=== PATIENT | female | born 1980 | race Caucasian/White ===

== ENCOUNTER 2016-06-22 09:43 | Emergency (ER) | payer BC ==
[2016-06-22 09:52] VITALS: RESP 20
[2016-06-22] MEDS ORDERED: ONDANSETRON 4 MG/2 ML VIAL IVP STA (10:27)
[2016-06-22] MEDS ORDERED: HYDROmorphone 1 MG/ML 1 ML SYRINGE IVP STA (10:27)
[2016-06-22] MEDS ORDERED: SODIUM CHLORIDE 0.9% 1,000 ML IV STA ×2 (10:27)
--- NOTE | 2016-06-22 10:30 | ED ---
General Adult HPI - General Chief complaint: Back Pain/Injury Stated complaint: kidney pain/abdominal pain Time Seen by Provider: 06/22/16 10:20 Source: patient, RN notes reviewed, old records reviewed Mode of arrival: ambulatory Limitations: no limitations - History of Present Illness Initial comments: Patient 36-year-old female who presents emergency room today with a chief complaint of right-sided flank pain over the last 2 weeks. Patient does admit that she went to urgent care and also is follow-up the family doctor. She states she was diagnosed with a kidney stone. She states that she was advised by her family doctor to have a CT. States been having increased pain left flank area. States it is constant. Describes it as sharp. States is been no signs of hematuria. States she was told it was somewhat. Her blood in her urine analysis. Patient states she was initially diagnosed with a UTI and then started on antibiotics which she has not currently at this time. Admits to nausea at times. Patient denies any other complaints or symptoms currently. Patient denies any recent fever, chills, shortness of breath, chest pain, vomiting, numbness or tingling, dysuria or hematuria, constipation or diarrhea, headaches or visual changes, or any other complaints. - Related Data Home Medications Medication Instructions Recorded Confirmed Acetaminophen-Codeine 300-30mg 1 tab PO Q8H PRN 03/16/14 06/22/16 [Tylenol w/codeine #3] Ibuprofen [Motrin] 800 mg PO Q8H PRN 06/22/16 06/22/16 Previous Rx's Medication Instructions Recorded Cyclobenzaprine [Flexeril] 10 mg PO TID #20 tab 06/22/16 Allergies Allergy/AdvReac Type Severity Reaction Status Date / Time Sulfa (Sulfonamide Allergy DROP IN Verified 06/22/16 10:11 Antibiotics) BP/RASH/ITCH/N&V Review of Systems ROS Statement: Those systems with pertinent positive or pertinent negative responses have been documented in the HPI. ROS Other: All systems not noted in ROS Statement are negative. Past Medical History Past Medical History: No Reported History History of Any Multi-Drug Resistant Organisms: None Reported Past Surgical History: Section Additional Past Surgical History / Comment(s): LEAP procedure Past Psychological History: No Psychological Hx Reported Smoking Status: Former smoker Past Alcohol Use History: None Reported Past Drug Use History: None Reported General Exam - General Exam Comments Initial Comments: General: The patient is awake and alert, in no distress, and does not appear acutely ill. Eye: Pupils are equal, round and reactive to light, extra-ocular movements are intact. No nystagmus. There is normal conjunctiva bilaterally. No signs of icterus. Ears, nose, mouth and throat: There are moist mucous membranes and no oral lesions. Neck: The neck is supple, there is no tenderness or JVD. Cardiovascular: There is a regular rate and rhythm. No murmur, rub or gallop is appreciated. Respiratory: Lungs are clear to auscultation, respirations are non-labored, breath sounds are equal. No wheezes, stridor, rales, or rhonchi. Gastrointestinal: Normal. 7. Normal bowel sounds. Abdomen soft on palpation. Patient does have mild tenderness suprapubic over the bladder. No rebound tenderness. No guarding. Mild left-sided CVA tenderness. Musculoskeletal: Normal ROM, no tenderness. Strength 5/5. Sensation intact. Pulses equal bilaterally 2+. Neurological: A&O x 3. CN II-XII intact, There are no obvious motor or sensory deficits. Coordination appears grossly intact. Speech is normal. Skin: Skin is warm and dry and no rashes or lesions are noted. Psychiatric: Cooperative, appropriate mood & affect, normal judgment. Limitations: no limitations Course Vital Signs 06/22/16 09:49 Temperature 97.6 F Pulse Rate 73 Respiratory 20 Rate Blood Pressure 140/73 O2 Sat by Pulse 97 Oximetry Medical Decision Making - Medical Decision Making Patient reexamined at this time shows no signs of distress. States still expresses some discomfort and left flank. Patient labs been reviewed are unremarkable. Urinalysis is negative for any sign of infection. No hematuria. Patient's CT results that show a 7.5 mm stone in the mid pole of the left kidney. No evidence of hydronephrosis. Results were discussed with attending physician Dr. Anderson. Results discussed with the patient. Was discussed the possibility of muscle or skeletal pain causing symptoms as she does admit that it's worse when she lifts things or certain movements. Patient does have L3 and ibuprofen at home that she is using for pain. Options of a muscle laxer were discussed with the patient. She was advised it may make her drowsy. Advised to try this this evening for the symptoms. Advised follow back up to her family doctor. Also given information for urology. Advised return if any symptoms increase or worsen or for any other concerns. - Lab Data Result diagrams: 06/22/16 10:05 06/22/16 10:05 Lab Results 06/22/16 06/22/16 06/22/16 Range/Units 10:05 10:05 10:05 WBC 4.4 (3.8-10.6) k/uL RBC 3.96 (3.80-5.40) m/uL Hgb 11.8 (11.4-16.0) gm/dL Hct 35.9 (34.0-46.0) % MCV 90.8 (80.0-100.0) fL MCH 29.7 (25.0-35.0) pg MCHC 32.8 (31.0-37.0) g/dL RDW 13.4 (11.5-15.5) % Plt Count 206 (150-450) k/uL Neutrophils % 79 % Lymphocytes % 10 % Monocytes % 7 % Eosinophils % 1 % Basophils % 1 % Neutrophils # 3.5 (1.3-7.7) k/uL Lymphocytes # 0.5 L (1.0-4.8) k/uL Monocytes # 0.3 (0-1.0) k/uL Eosinophils # 0.1 (0-0.7) k/uL Basophils # 0.0 (0-0.2) k/uL Sodium 140 (137-145) mmol/L Potassium 4.5 (3.5-5.1) mmol/L Chloride 102 (98-107) mmol/L Carbon Dioxide 26 (22-30) mmol/L Anion Gap 12 mmol/L BUN 15 (7-17) mg/dL Creatinine 0.76 (0.52-1.04) mg/dL Est GFR (MDRD) Af Amer >60 (>60 ml/min/1.73 sqM) Est GFR (MDRD) Non-Af >60 (>60 ml/min/1.73 sqM) Glucose 78 (74-99) mg/dL Calcium 9.2 (8.4-10.2) mg/dL Total Bilirubin 0.5 (0.2-1.3) mg/dL AST 16 (14-36) U/L ALT 36 (9-52) U/L Alkaline Phosphatase 61 (38-126) U/L Total Protein 7.6 (6.3-8.2) g/dL Albumin 4.1 (3.5-5.0) g/dL Lipase 106 (23-300) U/L Urine Color Colorless Urine Appearance Clear (Clear) Urine pH 6.5 (5.0-8.0) Urine Protein Negative (Negative) Urine Glucose (UA) Negative (Negative) Urine Ketones Negative (Negative) Urine Blood Negative (Negative) Urine Nitrate Negative (Negative) Urine Bilirubin Negative (Negative) Urine Urobilinogen <2.0 (<2.0) mg/dL Ur Leukocyte Esterase Negative (Negative) Urine HCG, Qual (Not Detectd) 06/22/16 Range/Units 10:05 WBC (3.8-10.6) k/uL RBC (3.80-5.40) m/uL Hgb (11.4-16.0) gm/dL Hct (34.0-46.0) % MCV (80.0-100.0) fL MCH (25.0-35.0) pg MCHC (31.0-37.0) g/dL RDW (11.5-15.5) % Plt Count (150-450) k/uL Neutrophils % % Lymphocytes % % Monocytes % % Eosinophils % % Basophils % % Neutrophils # (1.3-7.7) k/uL Lymphocytes # (1.0-4.8) k/uL Monocytes # (0-1.0) k/uL Eosinophils # (0-0.7) k/uL Basophils # (0-0.2) k/uL Sodium (137-145) mmol/L Potassium (3.5-5.1) mmol/L Chloride (98-107) mmol/L Carbon Dioxide (22-30) mmol/L Anion Gap mmol/L BUN (7-17) mg/dL Creatinine (0.52-1.04) mg/dL Est GFR (MDRD) Af Amer (>60 ml/min/1.73 sqM) Est GFR (MDRD) Non-Af (>60 ml/min/1.73 sqM) Glucose (74-99) mg/dL Calcium (8.4-10.2) mg/dL Total Bilirubin (0.2-1.3) mg/dL AST (14-36) U/L ALT (9-52) U/L Alkaline Phosphatase (38-126) U/L Total Protein (6.3-8.2) g/dL Albumin (3.5-5.0) g/dL Lipase (23-300) U/L Urine Color Urine Appearance (Clear) Urine pH (5.0-8.0) Urine Protein (Negative) Urine Glucose (UA) (Negative) Urine Ketones (Negative) Urine Blood (Negative) Urine Nitrate (Negative) Urine Bilirubin (Negative) Urine Urobilinogen (<2.0) mg/dL Ur Leukocyte Esterase (Negative) Urine HCG, Qual Not Detected (Not Detectd) Disposition Clinical Impression: Renal colic on left side Disposition: HOME SELF-CARE Condition: Good Instructions: Renal Colic (ED) Additional Instructions: Please use medication as discussed. Please follow-up with family doctor in the next 2 days of symptoms have not improved. Please return to emergency room if the symptoms increase or worsen or for any other concerns. Prescriptions: Cyclobenzaprine [Flexeril] 10 mg PO TID #20 tab Referrals: None,Stated [Primary Care Provider] - 1-2 days Wade Jarrett MD [STAFF PHYSICIAN] - 1-2 days Time of Disposition: 11:59
[2016-06-22 10:42] LABS: Basophils % (A) 1 %; CH 29.8; Eosinophils # (A) 0.1 k/uL (0-0.7); Eosinophils % (A) 1 %; HCT 35.9 % (34.0-46.0); HDW 2.24; HGB 11.8 gm/dL (11.4-16.0); Luc # (Auto) 0.04; Luc % (Auto) 1; Lymphocytes # (A) 0.5 k/uL (1.0-4.8); Lymphocytes % (A) 10 %; MCH 29.7 pg (25.0-35.0); MCHC 32.8 g/dL (31.0-37.0); MCV 90.8 fL (80.0-100.0); Mean Platelet Volume 8.1; Monocytes # (A) 0.3 k/uL (0-1.0); Monocytes % (A) 7 %; Neutrophils # (A) 3.5 k/uL (1.3-7.7); Neutrophils % (A) 79 %; RBC 3.96 m/uL (3.80-5.40); RDW 13.4 % (11.5-15.5); WBC 4.4 k/uL (3.8-10.6); WBC (Perox) 4.81
[2016-06-22 10:47] LABS: Appearance,Urine Clear (Clear); Bilirubin,Urine Negative (Negative); Glucose,Urine (UA) Negative (Negative); Ketones,Urine Negative (Negative); Leukocyte Esterase,Urine Negative (Negative); Nitrite,Urine Negative (Negative); PH, Urine 6.5 (5.0-8.0); Protein,Urine Negative (Negative); UA Billing (MACRO vs. MICRO) CHEM; Urobilinogen,Urine <2.0 mg/dL (<2.0)
[2016-06-22 10:57] LABS: ALT 36 U/L (9-52); AST 16 U/L (14-36); Alkaline Phosphatase 61 U/L (38-126); Anion Gap 12 mmol/L; Blood Urea Nitrogen 15 mg/dL (7-17); Calcium 9.2 mg/dL (8.4-10.2); Carbon Dioxide 26 mmol/L (22-30); Chloride 102 mmol/L (98-107); Glucose 78 mg/dL (74-99); Non-African American GFR(MDRD) >60 (>60 ml/min/1.73 sqM); Potassium 4.5 mmol/L (3.5-5.1); Sodium 140 mmol/L (137-145); Total Bilirubin 0.5 mg/dL (0.2-1.3); Total Protein 7.6 g/dL (6.3-8.2)
--- NOTE | 2016-06-22 11:30 | CT ---
EXAMINATION TYPE: CT abdomen pelvis wo con DATE OF EXAM: 06/22/2016 11:15 AM COMPARISON: NONE HISTORY: Lt flank pain CT DLP: 720 mGycm FINDINGS: LUNG BASES: No evidence for nodule. No evidence for infiltrate. LIVER/GB: The gallbladder is unremarkable. No space-occupying hepatic lesion. PANCREAS: No pancreatic mass identified. No inflammatory process seen. SPLEEN: No evidence for splenomegaly. No intrasplenic lesions seen. ADRENALS: No adrenal nodules identified. No evidence for thickening. KIDNEYS: No evidence for renal mass. 7.5 mm calculus overlies the left kidney midpole region. No evid ence for hydronephrosis. 1 mm calculus upper pole left kidney no definite right-sided renal calculi s een. Urinary bladder appears unremarkable. BOWEL: Appendix has a normal appearance. No evidence of bowel obstruction. No inflammatory process. Lymph nodes: No evidence for adenopathy greater than 1 cm. Abdominal aorta: Atheromatous changes seen. No evidence for aneurysm. Genital organs: No significant abnormality. Other: No significant abnormality. IMPRESSION: 7.5 mm calculus overlies the left kidney midpole region. No evidence for hydronephrosis.
[2016-06-22 12:26] VITALS: BP 111/72; PULSE 82; TEMP 98.3
[2016-06-22 13:47] LABS: Specific Gravity,Urine 1.002 (1.001-1.035)
== END 2016-06-22 12:23 | disposition home or self-care (01) ==
LOC: EC 09:43
DX: N20.0 Calculus of kidney (principal); Z88.2 Allergy status to sulfonamides; Z87.891 Personal history of nicotine dependence
CPT/HCPCS: 36415; 80053; 83690; 85025; 81003; 81025; 74176; 96374; 96375; 96361; 99284; J2405; J1170

== ENCOUNTER 2016-06-24 05:10 | Observation (INO) | payer BC ==
[2016-06-24] MEDS ORDERED: SODIUM CHLORIDE 0.9% 1,000 ML IV STA (05:43)
[2016-06-24] MEDS ORDERED: ONDANSETRON 4 MG/2 ML VIAL IVP STA (05:43)
--- NOTE | 2016-06-24 05:47 | ED ---
General Adult HPI - General Source: patient, RN notes reviewed Mode of arrival: ambulatory Limitations: no limitations <Chacorta Brush - Last Filed: 06/24/16 06:52> <Anoop Anderson - Last Filed: 06/24/16 11:48> - General Chief complaint: Abdominal Pain Stated complaint: abd pain Time Seen by Provider: 06/24/16 05:20 - History of Present Illness Initial comments: This is a 36-year-old female who presents emergency Department with a 2 week history of abdominal pain. 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 Patient states she came to the emergency department had more blood work and CAT scan. Patient states no one can figure out what she's had she was initially told may be urinary tract infection and then later was told may be a kidney stone. Patient states she's had a low-grade fever and some chills she denies any vomiting but is nauseous when she eats. Patient denies any diarrhea. Patient denies any vaginal bleeding or discharge. Patient states she's had 4 tests since this all started and they have all been negative. Patient denies any headache patient denies any chest pain or difficulty breathing. Patient denies any back pain patient states the pain today is in the right lower quadrant near the umbilicus (Chacorta Brush) - Related Data Home Medications Medication Instructions Recorded Confirmed Acetaminophen [Tylenol] 1,000 mg PO Q4-6H PRN 06/24/16 06/24/16 Allergies Allergy/AdvReac Type Severity Reaction Status Date / Time Sulfa (Sulfonamide Allergy DROP IN Verified 06/24/16 07:47 Antibiotics) BP/RASH/ITCH/N&V Review of Systems ROS Other: All systems not noted in ROS Statement are negative. <Chacorta Brush - Last Filed: 06/24/16 06:52> ROS Other: All systems not noted in ROS Statement are negative. <Anoop Anderson - Last Filed: 06/24/16 11:48> ROS Statement: Those systems with pertinent positive or pertinent negative responses have been documented in the HPI. Past Medical History Past Medical History: No Reported History History of Any Multi-Drug Resistant Organisms: None Reported Past Surgical History: Section Additional Past Surgical History / Comment(s): LEAP procedure, c sect x 3 Past Psychological History: No Psychological Hx Reported Smoking Status: Former smoker Past Alcohol Use History: None Reported Past Drug Use History: None Reported <Chacorta Brush - Last Filed: 06/24/16 06:52> General Exam Limitations: no limitations <Chacorta Brush - Last Filed: 06/24/16 06:52> <Anoop Anderson - Last Filed: 06/24/16 11:48> - General Exam Comments Initial Comments: GENERAL: Patient is well-developed and well-nourished. Patient is nontoxic and well- hydrated and is in mild distress. ENT: Neck is soft and supple. No significant lymphadenopathy is noted. Oropharynx is clear. Moist mucous membranes. Neck has full range of motion without eliciting any pain. EYES: The sclera were anicteric and conjunctiva were pink and moist. Extraocular movements were intact and pupils were equal round and reactive to light. Eyelids were unremarkable. PULMONARY: Unlabored respirations. Good breath sounds bilaterally. No audible rales rhonchi or wheezing was noted. CARDIOVASCULAR: There is a regular rate and rhythm without any murmurs gallops or rubs. ABDOMEN: Patient has tenderness just lateral and inferior to the umbilicus on the right. No palpable organomegaly was noted. There is no palpable pulsatile mass. SKIN: Skin is clear with no lesions or rashes and otherwise unremarkable. NEUROLOGIC: Patient is alert and oriented x3. Cranial nerves II through XII are grossly intact. Motor and sensory are also intact. Normal speech, volume and content. Symmetrical smile. MUSCULOSKELETAL: Normal extremities with adequate strength and full range of motion. No lower extremity swelling or edema. No calf tenderness. LYMPHATICS: No significant lymphadenopathy is noted PSYCHIATRIC: Normal psychiatric evaluation. (Chacorta Brush) Course <Chacorta Brush - Last Filed: 06/24/16 06:52> <Anoop Anderson - Last Filed: 06/24/16 11:48> Vital Signs 06/24/16 06/24/16 06/24/16 05:18 06:32 08:24 Temperature 98.8 F Pulse Rate 87 72 96 Respiratory 16 18 18 Rate Blood Pressure 109/67 109/70 128/72 O2 Sat by Pulse 98 96 97 Oximetry 06/24/16 11:00 Temperature Pulse Rate 71 Respiratory 18 Rate Blood Pressure 102/61 O2 Sat by Pulse 99 Oximetry - Reevaluation(s) Reevaluation #1: 06/24/16 08:53 Patient reevaluated by myself, Dr. Anderson. Patient does have moderate right lower quadrant tenderness with some guarding. Case discussed in detail with Dr. Zendejas, who does recommend computed tomography scan with contrast. 06/24/16 11:48 Patient again reevaluated and updated. Case was again discussed with Dr. Zendejas, who will admit for observation and requests COMPRESSOR OPERATOR consult. (Anoop Anderson) Medical Decision Making - Lab Data Result diagrams: 06/24/16 05:32 06/24/16 05:32 <Chacorta Brush - Last Filed: 06/24/16 06:52> - Lab Data Result diagrams: 06/24/16 05:32 06/24/16 05:32 - Radiology Data Radiology results: report reviewed (Abdominal ultrasound does not visualize the appendix with certainty. Computed tomography scan of the abdomen pelvis does show normal appendix, 7.5 mm stone left kidney. Degenerative disc disease L4- L5.), image reviewed (KUB shows a 7 mm left kidney stone.) <Anoop Anderson - Last Filed: 06/24/16 11:48> - Medical Decision Making Dr. Anderson will be taking over the care of this patient at 7 AM (Chacorta Brush) - Lab Data Lab Results 06/24/16 06/24/16 06/24/16 Range/Units 05:30 05:32 05:32 WBC 4.4 (3.8-10.6) k/uL RBC 4.00 (3.80-5.40) m/uL Hgb 12.2 (11.4-16.0) gm/dL Hct 36.0 (34.0-46.0) % MCV 90.2 (80.0-100.0) fL MCH 30.4 (25.0-35.0) pg MCHC 33.7 (31.0-37.0) g/dL RDW 13.4 (11.5-15.5) % Plt Count 168 (150-450) k/uL Neutrophils % 68 % Lymphocytes % 21 % Monocytes % 9 % Eosinophils % 0 % Basophils % 0 % Neutrophils # 3.0 (1.3-7.7) k/uL Lymphocytes # 0.9 L (1.0-4.8) k/uL Monocytes # 0.4 (0-1.0) k/uL Eosinophils # 0.0 (0-0.7) k/uL Basophils # 0.0 (0-0.2) k/uL Sodium 141 (137-145) mmol/L Potassium 4.1 (3.5-5.1) mmol/L Chloride 103 (98-107) mmol/L Carbon Dioxide 25 (22-30) mmol/L Anion Gap 13 mmol/L BUN 7 (7-17) mg/dL Creatinine 0.78 (0.52-1.04) mg/dL Est GFR (MDRD) Af Amer >60 (>60 ml/min/1.73 sqM) Est GFR (MDRD) Non-Af >60 (>60 ml/min/1.73 sqM) Glucose 106 H (74-99) mg/dL Calcium 9.1 (8.4-10.2) mg/dL Total Bilirubin 0.4 (0.2-1.3) mg/dL AST 19 (14-36) U/L ALT 33 (9-52) U/L Alkaline Phosphatase 59 (38-126) U/L Total Protein 7.6 (6.3-8.2) g/dL Albumin 4.2 (3.5-5.0) g/dL Amylase 69 (30-110) U/L Lipase 143 (23-300) U/L Urine Color Yellow Urine Appearance Clear (Clear) Urine pH 6.5 (5.0-8.0) Ur Specific [place] 1.012 (1.001-1.035) Urine Protein Trace H (Negative) Urine Glucose (UA) Negative (Negative) Urine Ketones 1+ H (Negative) Urine Blood Trace H (Negative) Urine Nitrate Negative (Negative) Urine Bilirubin Negative (Negative) Urine Urobilinogen <2.0 (<2.0) mg/dL Ur Leukocyte Esterase Negative (Negative) Urine RBC 3 (0-5) /hpf Urine WBC 1 (0-5) /hpf Ur Squamous Epith Cells <1 (0-4) /hpf Urine Bacteria Rare H (None) /hpf Urine Mucus Rare H (None) /hpf Disposition <Chacorta Brush - Last Filed: 06/24/16 06:52> <Anoop Anderson - Last Filed: 06/24/16 11:48> Clinical Impression: Abdominal pain Disposition: ADMITTED IP TO THIS HOSP
[2016-06-24 05:52] LABS: Basophils % (A) 0 %; CH 29.7; Eosinophils % (A) 0 %; HGB 12.2 gm/dL (11.4-16.0); Luc # (Auto) 0.08; Luc % (Auto) 2; Lymphocytes # (A) 0.9 k/uL (1.0-4.8); Lymphocytes % (A) 21 %; MCH 30.4 pg (25.0-35.0); MCHC 33.7 g/dL (31.0-37.0); MCV 90.2 fL (80.0-100.0); Mean Platelet Volume 8.5; Monocytes # (A) 0.4 k/uL (0-1.0); Monocytes % (A) 9 %; Neutrophils % (A) 68 %; RDW 13.4 % (11.5-15.5); WBC 4.4 k/uL (3.8-10.6); WBC (Perox) 4.64
[2016-06-24 06:00] LABS: Appearance,Urine Clear (Clear); Bacteria,Urine Rare /hpf; Bilirubin,Urine Negative (Negative); Glucose,Urine (UA) Negative (Negative); Ketones,Urine 1+ (Negative); Leukocyte Esterase,Urine Negative (Negative); Mucus,Urine Rare /hpf; Nitrite,Urine Negative (Negative); PH, Urine 6.5 (5.0-8.0); Particle Count 1894; Protein,Urine Trace (Negative); RBC,Urine 3 /hpf (0-5); Specific Gravity,Urine 1.012 (1.001-1.035); Squamous Epithelial Cell,Urine <1 /hpf (0-4); UA Billing (MACRO vs. MICRO) MICRO; Urobilinogen,Urine <2.0 mg/dL (<2.0); WBC,Urine 1 /hpf (0-5)
--- NOTE | 2016-06-24 06:04 | XR ---
EXAMINATION TYPE: XR KUB DATE OF EXAM: 06/24/2016 5:55 AM CLINICAL HISTORY: Abdominal pain, right flank pain vomiting. TECHNIQUE: Single supine KUB image of the abdomen is obtained. COMPARISON: CT abdomen pelvis 06/22/2016 FINDINGS: Scattered gas is seen in non-distended small bowel loops. Gas and fecal material is seen in non-distended colon. There is no visceromegaly, pneumoperitoneum appreciated. The lung bases are clear and the osseous structures are intact. Again noted is 7 mm opaque density superimposing the left kidney. IMPRESSION: Overall nonobstructive bowel gas pattern. 7 mm left kidney stone is noted.
[2016-06-24 06:06] LABS: ALT 33 U/L (9-52); AST 19 U/L (14-36); Alkaline Phosphatase 59 U/L (38-126); Amylase 69 U/L (30-110); Anion Gap 13 mmol/L; Blood Urea Nitrogen 7 mg/dL (7-17); Calcium 9.1 mg/dL (8.4-10.2); Carbon Dioxide 25 mmol/L (22-30); Chloride 103 mmol/L (98-107); Glucose 106 mg/dL (74-99); Non-African American GFR(MDRD) >60 (>60 ml/min/1.73 sqM); Potassium 4.1 mmol/L (3.5-5.1); Sodium 141 mmol/L (137-145); Total Bilirubin 0.4 mg/dL (0.2-1.3); Total Protein 7.6 g/dL (6.3-8.2)
--- NOTE | 2016-06-24 08:20 | US ---
EXAMINATION TYPE: US abdomen APPY DATE OF EXAM: 06/24/2016 8:04 AM COMPARISON: EXAMINATION TYPE: US abdomen APPY DATE OF EXAM: 06/24/2016 8:04 AM COMPARISON: 06/22/16 CT in pacs CLINICAL HISTORY: Pain. RLQ pain x 2 weeks with fever/chills/nausea x 2 days TECHNOLOGIST IMPRESSION: Scanned RLQ area of pain: appendix not seen with certainty at this time, 1. 5 x 0.4 x 0.9cm hypoechoic area and 1.8 x 0.5 x 0.9cm hypoechoic area seen, probable lymph nodes IMPRESSION: The appendix is not visualized with certainty.
[2016-06-24] MEDS ORDERED: FAMOTIDINE 20 MG/2 ML VIAL IV STA (08:41)
[2016-06-24] MEDS ORDERED: ACETAMINOPHEN IV (For NPO) 1,000 MG in SALINE 1 100ML.BAG IVPB STA (08:41)
[2016-06-24] MEDS ORDERED: IOHEXOL 350 MG/ML 25 ML BOTTLE (ORAL USE) PO PRN (08:52)
[2016-06-24] MEDS ORDERED: RX INFO: IV CONTRAST WAS GIVEN 1 EACH MISC MISCELLANE PRN (08:52)
[2016-06-24] MEDS ORDERED: DOCUSATE 283 MG/5 ML ENEMA RECTAL STA (09:14)
--- NOTE | 2016-06-24 11:20 | CT ---
EXAMINATION TYPE: CT abdomen pelvis w con DATE OF EXAM: 06/24/2016 10:40 AM REFERENCE: Previous study dated 06/22/2016 HISTORY: rlq pain, with rectal contrast HISTORY: RLQ pain REFERENCE: NONE CT DLP: 673 mGy Automated exposure control for dose reduction was used. TECHNIQUE: Helical acquisition through the abdomen and pelvis was obtained following the oral ingesti on of without Oral Contrast and following intravenous administration of 100 mL of Omnipaque 300. The data was reformatted in axial, coronal and sagittal projections. Rectal contrast was also administere d FINDINGS: Visualized portions of the lungs are clear. There is no pleural or pericardial fluid. Within the abdomen, the liver is prominent measuring 20 cm. The spleen and gallbladder are normal. Both adrenal glands are normal. There is a 7.5 mm calcification associated with the left kidney, unchanged from previous. The right k idney is unremarkable. The pancreas is normal. There is no significant retroperitoneal, iliac or inguinal adenopathy. Uterus is unremarkable. The ovaries appear normal. The bladder is unremarkable. There is no significant diverticular change and there is no radiographic evidence of diverticulitis. The appendix is normal. No free air is seen. There is degenerative disc disease at L4-5. IMPRESSION: 1. NORMAL APPENDIX. 2. 7.5 MM CALCIFICATION OVERLYING THE MID POLAR REGION OF THE LEFT KIDNEY DOES NOT HAVE THE CLASSIC APPEARANCE OF A RENAL CALCULUS. 3. DEGENERATIVE DISC DISEASE, L4-5.
[2016-06-24] MEDS ORDERED: ONDANSETRON 4 MG/2 ML VIAL IVP PRN (11:48)
[2016-06-24] MEDS ORDERED: MORPHINE SULFATE 4 MG/ML SYRINGE IV PRN (11:48)
[2016-06-24] MEDS ORDERED: ACETAMINOPHEN TAB 325 MG TAB PO PRN (11:48)
[2016-06-24] MEDS ORDERED: NALOXONE 0.4 MG/ML 1 ML VIAL IV PRN (11:48)
[2016-06-24] MEDS ORDERED: SODIUM CHLORIDE 0.9% 1,000 ML IV SCH (12:00)
[2016-06-24 12:06] VITALS: RESP 16
--- NOTE | 2016-06-24 14:26 | US ---
EXAMINATION TYPE: US pelvic complete DATE OF EXAM: 06/24/2016 2:01 PM COMPARISON: In pacs CLINICAL HISTORY: Pain. Right pelvic pain x 2 weeks, 5, para 3, miscarriage 2 TECHNIQUE: Transvaginal (TV) and Transabdominal (TA) Date of LMP: February 2016 EXAM MEASUREMENTS: Uterus: 7.3 x 3.2 x 4.2 cm Endometrial Stripe: 0.4 cm Right Ovary: 1.6 x 0.9 x 1.4 cm Left Ovary: 3.2 x 1.6 x 1.5 cm TECHNOLOGIST IMPRESSION: 1. Uterus: Anteverted, slightly heterogeneous 2. Endometrium: appears wnl as seen, patient LMP 2015 3. Right Ovary: wnl 4. Left Ovary: wnl 5. Bilateral Adnexa: wnl 6. Posterior cul-de-sac: small amount of free fluid seen IMPRESSION: Normal pelvic ultrasound.
--- NOTE | 2016-06-24 15:49 | P.GSHP ---
History of Present Illness H&P Date: 06/24/16 Chief Complaint: Abdominal pain Patient is a 36-year-old white female admitted through the emergency department with complaints of right lower quadrant abdominal pain. Patient reports that she started having pain around her umbilicus on June 09. Patient originally went to urgent care and was diagnosed with possible UTI and started on antibiotics. Urine culture came back negative so antibiotics was stopped. Patient then was evaluated at another urgent care who diagnosed patient with a possible left kidney stone identified on x-ray. Patient subsequently presented to the emergency department on Wednesday where she was complaining of left flank pain associated with nausea with CT of abdomen and pelvis showing a 7.5 mm calculus over the left midpole region with no evidence for hydronephrosis. Patient was discharged to home with the impression of renal colic. Today, as mentioned above, patient presents with complaints of right lower quadrant abdominal pain. Patient reports chills, nausea, and reported fever of 101 last night. Patient states pain and nausea is worse after eating. Patient is described as sharp and cramping. Denies shortness of breath, chest pain, urinary frequency, dysuria, constipation or diarrhea. Ultrasound of right lower quadrant with 1.50.40.9 cm hypoechoic area and 1.80.50.9 cm hypoechoic area , probable lymph nodes per radiologist. Repeat CT of abdomen and pelvis with normal appendix; redemonstration of 7.5 calcification overlying the mid polar region of the left kidney; degenerative disc disease L4-5. Pelvic ultrasound normal. Admission blood work unremarkable. Urinalysis was trace protein, 1+ ketones, trace blood. Afebrile. Hemodynamically stable. Past Medical History Past Medical History: No Reported History Additional Past Medical History / Comment(s): Pt states she was told recently () that she has a L sided 7 mm nonobstructive kidney stone. History of Any Multi-Drug Resistant Organisms: None Reported Past Surgical History: Section Additional Past Surgical History / Comment(s): LEEP procedure, c sect x 3 Past Psychological History: No Psychological Hx Reported Additional Psychological History / Comment(s): Pt resides with her spouse and their 3 children, ages 3yrs, 7yrs and 8 yrs. She is independent. Smoking Status: Former smoker Past Alcohol Use History: None Reported Additional Past Alcohol Use History / Comment(s): Pt started smoking in 1997 and quit in 1999. Past Drug Use History: None Reported - Past Family History Father Family Medical History: Diabetes Mellitus Mother Family Medical History: Hypertension Medications and Allergies Home Medications Medication Instructions Recorded Confirmed Type Acetaminophen [Tylenol] 1,000 mg PO Q4-6H PRN 06/24/16 06/24/16 History Allergies Allergy/AdvReac Type Severity Reaction Status Date / Time Sulfa (Sulfonamide Allergy DROP IN Verified 06/24/16 07:47 Antibiotics) BP/RASH/ITCH/N&V Surgical - Exam Vital Signs Temp Pulse Resp BP Pulse Ox 98.8 F 87 16 109/67 98 06/24/16 05:18 06/24/16 05:18 06/24/16 05:18 06/24/16 05:18 06/24/16 05:18 GENERAL: Pt awake and alert, well-appearing, well-nourished, and in no acute distress. HEAD: Atraumatic, normocephalic. EYES: Pupils equal and round. Sclera anicteric, conjunctiva are normal. ENT: Moist mucous membranes. LUNGS: Breath sounds clear to auscultation bilaterally. No wheezes, rales, or rhonchi. HEART: Heart S1, S2, no S3 or S4. Regular rate and rhythm. No murmurs, rubs or gallops. ABDOMEN: Soft, mild right lower quadrant tenderness, nondistended, normoactive bowel sounds. No guarding, no rebound. No masses or organomegaly appreciated. MUSCULOSKELETAL: No CVA tenderness. No vertebral or paraspinal tenderness. NEUROLOGICAL: Pt oriented x 3. No focal deficits. PSYCH: Normal mood, normal affect. SKIN: Warm, dry, intact. Results - Labs 06/24/16 05:32 06/24/16 05:32 - Imaging CT scan - abdomen: report reviewed CT scan - pelvis: report reviewed US - abdomen: report reviewed Assessment and Plan Plan: Impression: 1. Right lower quadrant abdominal pain. 2. Left 7.5 cm renal calculus, nonobstructing. 3. Degenerative disc disease, L4-5. Plan: 1. Consult [employer]. Continue clear liquid diet. Continue IV hydration. Continue supportive treatment and pain management. Repeat CBC in a.m. The above impression and plan have been discussed and directed by Dr. Zendejas. Salomón ARAUZ acting as scribe for Dr. Zendejas.
[2016-06-24 16:43] VITALS: BP 93/62; PULSE 66; TEMP 97.8
--- NOTE | 2016-06-24 17:04 | P.OBCN ---
History of Present Illness Consult date: 06/24/16 Requesting physician: Dontrell Zendejas Reason for consult: other (Right lower quadrant pain) Chief complaint: Right lower quadrant pain History of present illness: This is a 36-year-old 3 para 3 woman who is a patient of Dr. Hawkins' roxana who was admitted with worsening right lower quadrant pain. She reports a several week history of nonspecific and intermittent abdominal pain however in the last 1 week this is localized to the umbilicus and right lower quadrant. She has been seen in the outpatient setting and diagnosed with urinary tract infection, renal colic and possible kidney stones. Antibiotics for urinary tract infection did not improve her symptoms. She reports feeling feverish last night and worsening nausea without vomiting. She therefore came into the emergency room. Currently she complains of generalized abdominal pain between the umbilicus and the right lower quadrant. She says this radiates somewhat into the right thigh. She denies flank pain. She is feeling nauseated but denies vomiting. She has regular monthly menses and has not had any abnormal vaginal bleeding. Is on an oral contraceptive pill. In fact she was seen for routine gynecologic exam less than 1 week ago and findings were normal at that time. She denies pain with urination, hematuria, constipation, diarrhea, pain with defecation, blood in the stools, vaginal bleeding or discharge. She has had a cough and upper respiratory tract infection last several days and she does notice an increase in her pain with coughing. She denies noticing abdominal bulge in the right lower quadrant with coughing. Review of Systems All systems: negative Past Medical History Past Medical History: No Reported History Additional Past Medical History / Comment(s): Pt states she was told recently () that she has a L sided 7 mm nonobstructive kidney stone. History of Any Multi-Drug Resistant Organisms: None Reported Past Surgical History: Section Additional Past Surgical History / Comment(s): LEEP procedure, c sect x 3 Past Psychological History: No Psychological Hx Reported Additional Psychological History / Comment(s): Pt resides with her spouse and their 3 children, ages 3yrs, 7yrs and 8 yrs. She is independent. Smoking Status: Former smoker Past Alcohol Use History: None Reported Additional Past Alcohol Use History / Comment(s): Pt started smoking in 1997 and quit in 1999. Past Drug Use History: None Reported - Past Family History Father Family Medical History: Diabetes Mellitus Mother Family Medical History: Hypertension Medications and Allergies Home Medications Medication Instructions Recorded Confirmed Type Acetaminophen [Tylenol] 1,000 mg PO Q4-6H PRN 06/24/16 06/24/16 History Allergies Allergy/AdvReac Type Severity Reaction Status Date / Time Sulfa (Sulfonamide Allergy DROP IN Verified 06/24/16 15:42 Antibiotics) BP/RASH/ITCH/N&V Exam - Vital Signs Vital signs: Vital Signs Temp Pulse Pulse Resp BP BP Pulse Ox 06/24/16 16:41 97.8 F 66 16 93/62 98 06/24/16 13:05 97.2 F L 74 16 112/65 100 06/24/16 12:05 98.1 F 68 16 94/56 98 Intake and Output 06/24/16 06/24/16 06/24/16 06:59 14:59 22:59 Intake Total 900 Output Total 400 Balance 500 Intake: Oral 900 Output: Urine 400 Other: Voiding Method Toilet Weight 63.4 kg Patient Weight 06/25/16 06:59 Weight 63.4 kg This is a somewhat uncomfortable-appearing female in no acute distress. HEENT exam is unremarkable for palpable lymphadenopathy or thyromegaly. The breathing is unlabored and her pulse is regular. The abdomen is slim and soft with no rebound or guarding. She has a well-healed Pfannenstiel incision. She indicates pain with deep palpation in the right lower quadrant but again there is no rebound. With straight leg left she does not have any bulging or evidence of hernia. The pubic symphysis is tender to palpation however there is no overt separation noted. She has no flank pain bilaterally. The extremities are free of edema, asymmetry or redness. She has no visible rash. She declines pelvic examination as this was performed less than 1 week ago by her routine artistic associate in the office and was normal. Results Result Diagrams: 06/24/16 05:32 06/24/16 05:32 CT scan - abdomen: report reviewed CT scan - pelvis: report reviewed (No adnexal abnormalities appreciated.) US - abdomen: report reviewed (Normal pelvic ultrasound without evidence of adnexal abnormalities. Normal physiologic free fluid noted.) Assessment and Plan (1) RLQ abdominal pain Status: Acute Plan: This is a 36-year-old woman with right lower abdominal pain. She has a nonsurgical abdomen on my exam currently. She has a normal white blood cell count. Review of computed tomography scan and ultrasound confirmed normal pelvis with no evidence of adnexal abnormalities, PID, or other gynecologic abnormalities. If she was taken to the operating room by the surgical team and happy to evaluate the pelvis at that time as necessary.
[2016-06-25] MEDS ORDERED: PANTOPRAZOLE 40 MG/10 ML VIAL IV SCH (09:00)
--- NOTE | 2016-09-23 08:12 | P.DS ---
Providers Date of admission: 06/24/16 11:50 Expected date of discharge: 06/24/16 Attending physician: Dontrell Zendejas Consults: 06/24/16 15:56 Consult Physician Urgent Consulting Provider: Gigi Hawkins Reason/Comments: abdominal pain Do you want consulting provider notified?: Yes Primary care physician: Stated None Hospital Course: The second 28-year-old female was admitted to the hospital with complaints of right lower quadrant pain. Patient underwent workup for her pain. Her workup was negative. Discussed her for details. She's discharged home on 06/24/2016. Patient Condition at Discharge: Good Plan - Discharge Summary Discharge Medication List Acetaminophen [Tylenol] 1,000 mg PO Q4-6H PRN 06/24/16 [History] Follow up Appointment(s)/Referral(s): None,Stated [Primary Care Provider] - 1-2 days Activity/Diet/Wound Care/Special Instructions: OK TO DISCHARGE HOME. FOLLOW UP IN ONE WEEK, SOONER FOR PROBLEMS OR CONCERNS....IE WORSENING ABDOMINAL PAIN, FEVER/CHILLS, VOMITING W/INABILITY TO KEEP FLUIDS/FOODS DOWN. Discharge Disposition: HOME SELF-CARE
== END 2016-06-24 17:40 | disposition home or self-care (01) ==
LOC: EC 05:10 → 6PED 11:50
PROVIDERS: ADMIT Surgery; ATTEND Surgery
DX: R10.31 Right lower quadrant pain (principal); N20.0 Calculus of kidney; M51.36 Other intervertebral disc degeneration, lumbar region; Z88.2 Allergy status to sulfonamides; Z79.899 Other long term (current) drug therapy; Z87.891 Personal history of nicotine dependence
CPT/HCPCS: 36415; 80053; 82150; 83690; 85025; 81001; 74000; 76705; 76856; 76830; 74177; 99285; 96374; 96375 ×2; 96361; G0378; J2405; Q9967; J0131

== ENCOUNTER → 2016-07-21 | Outpatient (CLI) | payer BC ==
[2016-07-21 10:30] LABS: Blood Urea Nitrogen 7 mg/dL (7-17); Non-African American GFR(MDRD) >60 (>60 ml/min/1.73 sqM)
--- NOTE | 2016-07-21 18:24 | XR ---
EXAMINATION TYPE: XR IVP DATE OF EXAM: 07/21/2016 11:55 AM COMPARISON: Radiograph and CT 06/24/2016 HISTORY: 36-year-old female ureteral calculus, left-sided abdominal pain and stone. TECHNIQUE: Following intravenous administration of 100 mL Omnipaque 350 IV contrast, multiple spot im ages are obtained. FINDINGS: The preliminary film of the abdomen demonstrates the ovoid 1.1 cm calcification in the left paramedia n mid abdomen. A tiny phlebolith is present on each side of the pelvis. Nonobstructive bowel gas jack bernard. Following intravenous administration of contrast material, sequential films of the abdomen were obtai eitan. There is prompt and symmetrical excretion of the contrast by both kidneys which demonstrate nor mal size and configuration. However, there is diffuse calyceal blunting on the right with slight asymmetric pelvicaliectasis as c ompared to the left side. The left-sided calculus become surrounded by contrast and appears to be along a major calyceal system possibly within a calyceal diverticulum. The upper third ureters are tortuous. The visualized portions of the ureters reveal no abnormality. N o mass or obstruction is visualized. There is gradual accumulation of contrast material in the urinary bladder showing no gross abnormalit y. The post-voiding film shows minimal residual contrast in the bladder and residual contrast within the proximal renal collecting systems. There appears to be mild asymmetric narrowing of right hip joint space. IMPRESSION: 1. No evidence for ureteral obstruction or suspicious filling defect within either ureter. 2. The 1.1 cm calculus in the left kidney become surrounded by contrast during renal excretion and is seen along a major calyceal system, possibly within a calyceal diverticulum. 3. Diffuse calyceal blunting on the right with slight asymmetric prominence to the right renal collec ting system suspected to be on a chronic basis, possibly secondary to remote infections or obstructio n.
== END | disposition home or self-care (01) ==
LOC: RADFLMAIN 09:29
PROVIDERS: ATTEND Urology
DX: N20.0 Calculus of kidney (principal)
CPT/HCPCS: 82565; 84520; 74400; Q9967

== ENCOUNTER → 2018-11-09 | Outpatient (CLI) | payer BC ==
--- NOTE | 2018-11-09 14:33 | MM ---
Reason for exam: screening (asymptomatic). Baseline mammogram. History: Taking hormonal contraceptives beginning at age 21. Physical Findings: Nurse did not find any significant physical abnormalities on exam. MG Screening Mammo w CAD Bilateral CC and MLO view(s) were taken. The breast tissue is heterogeneously dense. This may lower the sensitivity of mammography. Finding: There is a 9 mm round mass in the upper quadrant of the right breast. These results were verbally communicated with the patient and result sheet given to the patient on 11/09/18. ASSESSMENT: Incomplete: need additional imaging evaluation, BI-RAD 0 RECOMMENDATION: Special view mammogram of the right breast.
--- NOTE | 2018-11-09 14:34 | MM ---
Reason for exam: additional evaluation requested from abnormal screening. History: Taking hormonal contraceptives beginning at age 21. Physical Findings: Breast exam preformed at baseline screening. MG Work Up Mamm w CAD RT Spot compression CC view(s) were taken of the right breast. The breast tissue is heterogeneously dense. This may lower the sensitivity of mammography. Finding: There is a 9 mm mass in the upper quadrant of the right breast. These results were verbally communicated with the patient and result sheet given to the patient on 11/09/18. ASSESSMENT: Incomplete: need additional imaging evaluation, BI-RAD 0 RECOMMENDATION: Ultrasound of the right breast.
--- NOTE | 2018-11-09 14:35 | USB ---
Reason for exam: additional evaluation requested from abnormal screening. History: Taking hormonal contraceptives beginning at age 21. US Breast Workup Limited RT Right limited breast ultrasound including focal area of concern, retroareolar and axilla demonstrates no cystic or solid lesion seen. These results were verbally communicated with the patient and result sheet given to the patient on 11/09/18. ASSESSMENT: Probably benign, BI-RAD 3 RECOMMENDATION: Ultrasound of the right breast in 6 months.
== END | disposition home or self-care (01) ==
LOC: RADMAMWWP 12:44
PROVIDERS: ATTEND Obstetrics & Gynecology
DX: Z12.31 Encounter for screening mammogram for malignant neoplasm of breast (principal); R92.8 Other abnormal and inconclusive findings on diagnostic imaging of breast
CPT/HCPCS: 77065; 77067

== ENCOUNTER 2019-10-09 17:00 | Emergency (ER) | payer BC ==
[2019-10-09 17:05] VITALS: RESP 18; TEMP 97.5
--- NOTE | 2019-10-09 17:08 | ED ---
Allergic Reaction HPI - General Chief complaint: Allergic Reaction Stated complaint: poss med reaction Time Seen by Provider: 10/09/19 17:06 Source: patient Mode of arrival: ambulatory Limitations: no limitations - History of Present Illness Initial Comments: Patient is a 39-year-old male presenting to emergency Department with a chief complaint of possible ALLERGIC reaction. Patient reports 3 days ago she was prescribed ciprofloxacin for urinary tract infection. Patient has a history of recurring urinary tract infections. Patient reports over his only taken 3 doses of the medication which she takes twice a day 500 mg. Patient reports today ab out 2 hours prior to arrival she developed lightheadedness, dizziness and generalized achiness. Patient states she felt like "is going to pass out". Patient does report bilateral upper and lower extremity tingling sensation. Denies any nausea vomiting diarrhea. States since she started taking the medication her urinary symptoms have gradually resolved, however she has developed abdominal discomfort due to the medication. Patient reports she is ALLERGIC to sulfa medication and she had similar symptoms when she found out about that ALLERGY. Patient denies any itchiness or rashes. Denies dysphasia or odynophagia. Denies any dyspnea or chest pain. - Related Data Home Medications Medication Instructions Recorded Confirmed Methenamine/Sodium Salicylate [Azo 1 tab PO BID PRN 10/09/19 10/09/19 Urinary Tract Defense Tab] Norgestimate-Ethinyl Estradiol 1 tab PO DAILY 10/09/19 10/09/19 [Sprintec 28 Day Tablet] Allergies Allergy/AdvReac Type Severity Reaction Status Date / Time ciprofloxacin Allergy Confusion/Shortness Verified 10/09/19 19:05 of Breath/Headache Sulfa (Sulfonamide Allergy DROP IN Verified 10/09/19 19:05 Antibiotics) BP/RASH/ITCH/N&V Review of Systems ROS Statement: Those systems with pertinent positive or pertinent negative responses have been documented in the HPI. ROS Other: All systems not noted in ROS Statement are negative. Past Medical History Past Medical History: No Reported History Additional Past Medical History / Comment(s): Pt states she was told recently (06/22/16) that she has a L sided 7 mm nonobstructive kidney stone. History of Any Multi-Drug Resistant Organisms: None Reported Past Surgical History: Section Additional Past Surgical History / Comment(s): LEEP procedure, c sect x 3 Past Psychological History: No Psychological Hx Reported Smoking Status: Former smoker Past Alcohol Use History: None Reported Past Drug Use History: None Reported - Past Family History Father Family Medical History: Diabetes Mellitus Mother Family Medical History: Hypertension General Exam Limitations: no limitations General appearance: alert, anxious Head exam: Present: atraumatic, normocephalic, normal inspection Eye exam: Present: normal appearance, PERRL, EOMI Pupils: Present: normal accommodation ENT exam: Present: normal exam, normal oropharynx, mucous membranes moist Neck exam: Present: normal inspection, full ROM Respiratory exam: Present: normal lung sounds bilaterally Cardiovascular Exam: Present: regular rate, normal rhythm, normal heart sounds GI/Abdominal exam: Present: soft, tenderness (diffuse, mild). Absent: distended Extremities exam: Present: normal inspection, full ROM Back exam: Present: normal inspection, full ROM, CVA tenderness (L) Neurological exam: Present: alert, oriented X3, normal gait Psychiatric exam: Present: normal affect, normal mood Skin exam: Present: warm, dry, intact, normal color Course Vital Signs 10/09/19 10/09/19 17:01 18:30 Temperature 97.5 F L Pulse Rate 68 86 Respiratory 18 18 Rate Blood Pressure 144/83 131/86 O2 Sat by Pulse 100 100 Oximetry Medical Decision Making - Medical Decision Making Patient is a 39-year-old female presenting to emergency Department with a chief complaint of possible ALLERGIC reaction. Patient is complaining of feeling generally achy along with lightheadedness and a possible presyncopal episode. On exam patient appears to be no respiratory distress. No dysphasia odontophagia or any rashes detected. Patient did previously have an ALLERGIC re action to sulfa medication and it felt exactly the same according to her. EKG shows no QT prolongation. CBC and CMP are unremarkable. Patient does have positive nitrates in the urine. Advised the patient to stop taking the ciprofloxacin and she'll be started on a 10 day course of Keflex. Patient does have history of urinary tract infections. Patient was given antiemetics and a bolus of fluid. On reevaluation patient reports improvement symptoms. States the presyncopal feeling has resolved and she is comfortable going home. Return parameters were thoroughly discussed with patient was understanding and agreeable. Case discussed with physician. - Lab Data Result diagrams: 10/09/19 17:47 10/09/19 17:47 Lab Results 10/09/19 10/09/19 10/09/19 Range/Units 17:47 17:47 18:00 WBC 6.7 (3.8-10.6) k/uL RBC 4.22 (3.80-5.40) m/uL Hgb 11.9 (11.4-16.0) gm/dL Hct 37.7 (34.0-46.0) % MCV 89.3 (80.0-100.0) fL MCH 28.2 (25.0-35.0) pg MCHC 31.5 (31.0-37.0) g/dL RDW 13.4 (11.5-15.5) % Plt Count 227 (150-450) k/uL Neutrophils % 70 % Lymphocytes % 21 % Monocytes % 5 % Eosinophils % 1 % Basophils % 0 % Neutrophils # 4.7 (1.3-7.7) k/uL Lymphocytes # 1.4 (1.0-4.8) k/uL Monocytes # 0.3 (0-1.0) k/uL Eosinophils # 0.0 (0-0.7) k/uL Basophils # 0.0 (0-0.2) k/uL Sodium 134 L (137-145) mmol/L Potassium 3.9 (3.5-5.1) mmol/L Chloride 100 (98-107) mmol/L Carbon Dioxide 24 (22-30) mmol/L Anion Gap 10 mmol/L BUN 12 (7-17) mg/dL Creatinine 0.81 (0.52-1.04) mg/dL Est GFR (CKD-EPI)AfAm >90 (>60 ml/min/1.73 sqM) Est GFR (CKD-EPI)NonAf >90 (>60 ml/min/1.73 sqM) Glucose 105 H (74-99) mg/dL Calcium 9.2 (8.4-10.2) mg/dL Total Bilirubin 0.3 (0.2-1.3) mg/dL AST 21 (14-36) U/L ALT 16 (4-34) U/L Alkaline Phosphatase 63 (38-126) U/L Total Protein 7.5 (6.3-8.2) g/dL Albumin 4.2 (3.5-5.0) g/dL Urine Color Dark Yellow Urine Appearance Clear (Clear) Urine pH 6.5 (5.0-8.0) Ur Specific [place] 1.005 (1.001-1.035) Urine Protein Negative (Negative) Urine Glucose (UA) Negative (Negative) Urine Ketones Negative (Negative) Urine Blood Negative (Negative) Urine Nitrite Positive H (Negative) Urine Bilirubin Negative (Negative) Urine Urobilinogen <2.0 (<2.0) mg/dL Ur Leukocyte Esterase Small H (Negative) Urine RBC 2 (0-5) /hpf Urine WBC 5 (0-5) /hpf Ur Squamous Epith Cells 2 (0-4) /hpf Amorphous Sediment Rare H (None) /hpf Urine Bacteria Many H (None) /hpf Urine HCG, Qual (Not Detectd) 10/09/19 Range/Units 18:00 WBC (3.8-10.6) k/uL RBC (3.80-5.40) m/uL Hgb (11.4-16.0) gm/dL Hct (34.0-46.0) % MCV (80.0-100.0) fL MCH (25.0-35.0) pg MCHC (31.0-37.0) g/dL RDW (11.5-15.5) % Plt Count (150-450) k/uL Neutrophils % % Lymphocytes % % Monocytes % % Eosinophils % % Basophils % % Neutrophils # (1.3-7.7) k/uL Lymphocytes # (1.0-4.8) k/uL Monocytes # (0-1.0) k/uL Eosinophils # (0-0.7) k/uL Basophils # (0-0.2) k/uL Sodium (137-145) mmol/L Potassium (3.5-5.1) mmol/L Chloride (98-107) mmol/L Carbon Dioxide (22-30) mmol/L Anion Gap mmol/L BUN (7-17) mg/dL Creatinine (0.52-1.04) mg/dL Est GFR (CKD-EPI)AfAm (>60 ml/min/1.73 sqM) Est GFR (CKD-EPI)NonAf (>60 ml/min/1.73 sqM) Glucose (74-99) mg/dL Calcium (8.4-10.2) mg/dL Total Bilirubin (0.2-1.3) mg/dL AST (14-36) U/L ALT (4-34) U/L Alkaline Phosphatase (38-126) U/L Total Protein (6.3-8.2) g/dL Albumin (3.5-5.0) g/dL Urine Color Urine Appearance (Clear) Urine pH (5.0-8.0) Ur Specific [place] (1.001-1.035) Urine Protein (Negative) Urine Glucose (UA) (Negative) Urine Ketones (Negative) Urine Blood (Negative) Urine Nitrite (Negative) Urine Bilirubin (Negative) Urine Urobilinogen (<2.0) mg/dL Ur Leukocyte Esterase (Negative) Urine RBC (0-5) /hpf Urine WBC (0-5) /hpf Ur Squamous Epith Cells (0-4) /hpf Amorphous Sediment (None) /hpf Urine Bacteria (None) /hpf Urine HCG, Qual Not Detected (Not Detectd) - EKG Data EKG Comments: Sinus rhythm. Ventricular rate 65, OR 180, QRS 78, QTC 405 Disposition Clinical Impression: Medication reaction Disposition: HOME SELF-CARE Condition: Stable Instructions (If sedation given, give patient instructions): Allergic Rhinitis (ED) Additional Instructions: Take prescribed medication as directed. Stop taking the ciprofloxacin. Return to emergency department if symptoms worsen. Is patient prescribed a controlled substance at d/c from ED?: No Referrals: Chacorta Gonzales MD [Primary Care Provider] - 1-2 days Time of Disposition: 19:04
[2019-10-09] MEDS ORDERED: SODIUM CHLORIDE 0.9% 1,000 ML IV STA (17:23)
[2019-10-09] MEDS ORDERED: ONDANSETRON 4 MG/2 ML VIAL IVP STA (17:45)
[2019-10-09 18:09] LABS: Basophils % (A) 0 %; Eosinophils % (A) 1 %; HCT 37.7 % (34.0-46.0); HGB 11.9 gm/dL (11.4-16.0); Lymphocytes # (A) 1.4 k/uL (1.0-4.8); Lymphocytes % (A) 21 %; MCH 28.2 pg (25.0-35.0); MCHC 31.5 g/dL (31.0-37.0); MCV 89.3 fL (80.0-100.0); Mean Platelet Volume 8.1; Monocytes # (A) 0.3 k/uL (0-1.0); Monocytes % (A) 5 %; Neutrophils # (A) 4.7 k/uL (1.3-7.7); Neutrophils % (A) 70 %; Platelet Count 227 k/uL (150-450); RBC 4.22 m/uL (3.80-5.40); RDW 13.4 % (11.5-15.5); WBC 6.7 k/uL (3.8-10.6)
[2019-10-09 18:23] LABS: ALT 16 U/L (4-34); AST 21 U/L (14-36); African American GFR (CKD) >90 (>60 ml/min/1.73 sqM); Albumin 4.2 g/dL (3.5-5.0); Alkaline Phosphatase 63 U/L (38-126); Anion Gap 10 mmol/L; Blood Urea Nitrogen 12 mg/dL (7-17); Calcium 9.2 mg/dL (8.4-10.2); Carbon Dioxide 24 mmol/L (22-30); Chloride 100 mmol/L (98-107); Glucose 105 mg/dL (74-99); Non-African American GFR(CKD) >90 (>60 ml/min/1.73 sqM); Potassium 3.9 mmol/L (3.5-5.1); Sodium 134 mmol/L (137-145); Total Bilirubin 0.3 mg/dL (0.2-1.3); Total Protein 7.5 g/dL (6.3-8.2)
[2019-10-09 18:39] LABS: Amorphous Sediment,Urine Rare /hpf; Appearance,Urine Clear (Clear); Bacteria,Urine Many /hpf; Bilirubin,Urine Negative (Negative); Blood,Urine Negative (Negative); Color,Urine Dark Yellow; Glucose,Urine (UA) Negative (Negative); Ketones,Urine Negative (Negative); Leukocyte Esterase,Urine Small (Negative); Nitrite,Urine Positive (Negative); PH, Urine 6.5 (5.0-8.0); Protein,Urine Negative (Negative); RBC,Urine 2 /hpf (0-5); Specific Gravity,Urine 1.005 (1.001-1.035); Squamous Epithelial Cell,Urine 2 /hpf (0-4); Urobilinogen,Urine <2.0 mg/dL (<2.0); WBC,Urine 5 /hpf (0-5)
[2019-10-09 18:55] VITALS: BP 131/86; PULSE 86
== END 2019-10-09 19:13 | disposition home or self-care (01) ==
LOC: EC 17:00
DX: R42 Dizziness and giddiness (principal); R20.2 Paresthesia of skin; T50.905A Adverse effect of unspecified drugs, medicaments and biological substances, initial encounter; R82.998 Other abnormal findings in urine; Z88.1 Allergy status to other antibiotic agents; Z79.3 Long term (current) use of hormonal contraceptives; Z88.2 Allergy status to sulfonamides; Z87.440 Personal history of urinary (tract) infections; Z87.891 Personal history of nicotine dependence
CPT/HCPCS: 36415; 93005; 80053; 85025; 81001; 81025; 99283; 96374; 96361; J2405

== ENCOUNTER → 2023-10-23 | Outpatient (CLI) | payer BC ==
[2023-10-23 13:00] LABS: HCT 40.8 % (37.2-46.3); MCHC 31.9 g/dL (32.0-37.0); Mean Platelet Volume 10.8 FL (9.5-12.2); NRBC Per 100 WBC 0 X 10*3/uL (0.00-0.01); Platelet Count 240 X 10*3/uL (140-440); RBC 4.34 X 10*6/uL (4.10-5.20); RDW 12.9 % (11.5-14.5); WBC 5.05 X 10*3/uL (4.50-10.00)
[2023-10-23 13:34] LABS: Chol/HDL Ratio 2.53 Ratio; Ferritin 39.6 ng/mL (10.0-291.0); Iron 57 UG/DL (50-170); LDL Cholesterol,Calculated 104.5 mg/dL (0.0-131.0)
[2023-10-23 15:18] LABS: BUN/Creat Ratio 13.11 Ratio (12.00-20.00); Blood Urea Nitrogen 11.8 mg/dL (9.0-27.0); Carbon Dioxide 23.1 mmol/L (21.6-31.8); Chloride 104 mmol/L (96-109); Glucose 91 mg/dL (70-110); Potassium 4.5 mmol/L (3.5-5.5); Sodium 139 mmol/L (135-145); Total Iron Binding Capacity 475 UG/DL (228-460)
[2023-10-23 15:19] LABS: ALT 18 U/L (8-44); AST 18 U/L (13-35); Albumin 4.4 g/dL (3.8-4.9); Albumin/Globulin Ratio 1.47 Ratio (1.60-3.17); Alkaline Phosphatase 70 U/L (41-126); Calcium 9.5 mg/dL (8.7-10.3); Total Bilirubin 0.3 mg/dL (0.3-1.2); Total Protein 7.4 g/dL (6.2-8.2)
== END | disposition home or self-care (01) ==
LOC: LABWHC1 07:53
PROVIDERS: ATTEND Family Medicine
DX: Z00.00 Encounter for general adult medical examination without abnormal findings (principal); D64.9 Anemia, unspecified
CPT/HCPCS: 36415; 80053; 80061; 82607; 82728; 82746; 83540; 83550; 85027

== ENCOUNTER 2024-02-21 16:22 | Emergency (ER) | payer BC ==
[2024-02-21 16:37] VITALS: RESP 16; TEMP 98.1
[2024-02-21 16:55] LABS: Appearance,Urine Clear (Clear); Bilirubin,Urine Negative (Negative); Blood,Urine Negative (Negative); Color,Urine Colorless; Glucose,Urine (UA) Negative (Negative); Ketones,Urine Negative (Negative); Leukocyte Esterase,Urine Negative (Negative); Nitrite,Urine Negative (Negative); Protein,Urine Negative (Negative); Specific Gravity,Urine 1.001 (1.001-1.035); Urobilinogen,Urine <2.0 mg/dL (<2.0)
--- NOTE | 2024-02-21 17:57 | ED ---
Back Pain HPI - General Source: patient, RN notes reviewed Limitations: no limitations <Anastasiia Mirza - Last Filed: 02/21/24 17:56> <Haily Ricardo - Last Filed: 02/24/24 14:54> - General Chief Complaint: Back Pain/Injury Stated Complaint: back pain Time Seen by Provider: 02/21/24 17:56 - History of Present Illness Initial Comments: Quick note: 43-year-old male presented the ER with a chief complaint of left sided flank pain. She states has been ongoing for the past 3 days and has been slowly intensifying in nature. She reports nausea and a decreased appetite. She does report a calcification of her left kidney. Denies any urinary complaints no fevers. No known injuries. (Anastasiia Mirza) 43-year-old female presents emergency department reporting left-sided flank pain. States that it has been intermittently bothering her for the past few years. States that over the last 3 days it has been constant and intensifying in nature. She has tenderness to the area without radiation. Denies any provocative factors. Denies urinary complaints. No burning, bladder frequency. No diarrhea, constipation, black or bloody stools. Does report a history of a calcification on her left kidney but denies kidney stones. She has no vaginal bleeding or discharge. No concern for sexually transmitted infections or . No diarrhea, constipation, black or bloody stools. No injuries to the area. No other alleviating, precipitating modifying factors (Haily Ricardo) - Related Data Home Medications Medication Instructions Recorded Confirmed norgestimate-ethinyl estradioL 1 tab PO DAILY 10/09/19 02/21/24 [Sprintec 28 Day Tablet] Previous Rx's Medication Instructions Recorded HYDROcodone/APAP 5-325MG [[place] 1 tab PO Q6HR PRN 3 Days #12 tab 02/21/24 5-325] Allergies Allergy/AdvReac Type Severity Reaction Status Date / Time ciprofloxacin Allergy Confusion/Shortness Verified 02/21/24 20:35 of Breath/Headache Sulfa (Sulfonamide Allergy DROP IN Verified 02/21/24 20:35 Antibiotics) BP/RASH/ITCH/N&V Review of Systems ROS Other: All systems not noted in ROS Statement are negative. <Anastasiia Mirza - Last Filed: 02/21/24 17:56> ROS Other: All systems not noted in ROS Statement are negative. <Haily Ricardo - Last Filed: 02/24/24 14:54> ROS Statement: Those systems with pertinent positive or pertinent negative responses have been documented in the HPI. Past Medical History Past Medical History: No Reported History Additional Past Medical History / Comment(s): Pt states she was told recently (06/22/16) that she has a L sided 7 mm nonobstructive kidney stone. History of Any Multi-Drug Resistant Organisms: None Reported Past Surgical History: Section Additional Past Surgical History / Comment(s): LEEP procedure, c sect x 3 Past Psychological History: No Psychological Hx Reported Past Alcohol Use History: None Reported Past Drug Use History: None Reported - Past Family History Father Family Medical History: Diabetes Mellitus Mother Family Medical History: Hypertension <Anastasiia Mirza - Last Filed: 02/21/24 17:56> General Exam Limitations: no limitations <TravisAnastasiia calixto - Last Filed: 02/21/24 17:56> General appearance: alert, in no apparent distress Head exam: Present: atraumatic, normocephalic, normal inspection Eye exam: Present: normal appearance, PERRL, EOMI. Absent: scleral icterus, conjunctival injection, periorbital swelling ENT exam: Present: normal exam, mucous membranes moist Neck exam: Present: normal inspection. Absent: tenderness, meningismus, lymphadenopathy Respiratory exam: Present: normal lung sounds bilaterally. Absent: respiratory distress, wheezes, rales, rhonchi, stridor Cardiovascular Exam: Present: regular rate, normal rhythm, normal heart sounds. Absent: systolic murmur, diastolic murmur, rubs, gallop, clicks GI/Abdominal exam: Present: soft, normal bowel sounds. Absent: distended, tenderness, guarding, rebound, rigid Extremities exam: Present: normal inspection, full ROM, normal capillary refill. Absent: tenderness, pedal edema, joint swelling, calf tenderness Back exam: Present: CVA tenderness (L) Neurological exam: Present: alert, oriented X3, CN II-XII intact Psychiatric exam: Present: normal affect, normal mood Skin exam: Present: warm, dry, intact, normal color. Absent: rash <Haliy Ricardo Katia - Last Filed: 02/24/24 14:54> - General Exam Comments Initial Comments: Visual Physical Exam Vital signs reviewed General: Well-appearing, nontoxic, no acute distress. Head: Normocephalic, atraumatic Eyes: PERRLA, EOMI ENT: Airway patent Chest: Nonlabored breathing Skin: No visual rash, normal skin tone Neuro: Alert and oriented 3 Musculoskeletal: No gross abnormalities (Anastasiia Mirza) Course Vital Signs 02/21/24 02/21/24 16:34 20:09 Temperature 98.1 F Pulse Rate 70 66 Respiratory 16 16 Rate Blood Pressure 153/90 135/85 O2 Sat by Pulse 98 97 Oximetry Medical Decision Making <Anastasiia Mirza - Last Filed: 02/21/24 17:56> - Lab Data Result diagrams: 02/21/24 18:15 02/21/24 18:15 <Haily Ricardo - Last Filed: 02/24/24 14:54> - Medical Decision Making I performed the quick note portion of this chart. Electronically signed by Anastasiia Mirza PA-C (Anastasiia Mirza) Was pt. sent in by a medical professional or institution (ALDEN Pina, ENVIRONMENTAL STUDIES PROGRAM DIRECTOR, urgent care, hospital, or skilled nursing...) When possible be specific @ -No Did you speak to anyone other than the patient for history (EMS, parent, family, police, friend...)? What history was obtained from this source @ -No Did you review nursing and triage notes (agree or disagree)? Why? @ -I reviewed and agree with nursing and triage notes Were old charts reviewed (outside hosp., previous admission, EMS record, old EKG, old radiological studies, urgent care reports/EKG's, skilled nursing records)? Report findings @ -Patient had ultrasound imaging done of her left kidney as well as a CT urogram several years ago which was remarkable for a renal calcification Differential Diagnosis (chest pain, altered mental status, abdominal pain women, abdominal pain men, vaginal bleeding, weakness, fever, dyspnea, syncope, headache, dizziness, GI bleed, back pain, seizure, CVA, palpatations, mental health, musculoskeletal)? @ -Differential Abdominal Pain Women: Appendicitis, Cholecystitis, diverticulosis, ischemic bowel, pancreatitis, hepatitis, UTI, gastroenteritis, AAA, incarcerated hernia, bowel obstruction, constipation, inflammatory bowel, hepatitis, peptic ulcer disease, splenic infarction, perforated viscus, vulvitis, ovarian torsion, PID, kidney stone, placenta abruption, this is not meant to be an all-inclusive list EKG interpreted by me (3pts min.). @ -Not done X-rays interpreted by me (1pt min.). @ -None done CT interpreted by me (1pt min.). @ -Yes and demonstrates to left-sided calcifications, 1 of which is obstructed in the pelvis U/S interpreted by me (1pt. min.). @ -None done What testing was considered but not performed or refused? (CT, X-rays, U/S, labs)? Why? @ -None What meds were considered but not given or refused? Why? @ -None Did you discuss the management of the patient with other professionals (professionals i.e. , PA, ENVIRONMENTAL STUDIES PROGRAM DIRECTOR, lab, RT, psych nurse, psychologist social, lockstitch shoulder joiner, teacher, equal employment opportunity officer, renal case manager)? Give summary @ -No Was smoking cessation discussed for >3mins.? @ -No Was critical care preformed (if so, how long)? @ -No Were there social determinants of health that impacted care today? How? (Homelessness, low income, unemployed, alcoholism, drug addiction, transportation, low edu. Level, literacy, decrease access to med. care, [place] [facility], rehab)? @ -No Was there de-escalation of care discussed even if they declined (Discuss DNR or withdrawal of care, Hospice)? DNR status @ -No What co-morbidities impacted this encounter? (DM, HTN, Smoking, COPD, CAD, Cancer, CVA, ARF, Chemo, Hep., AIDS, mental health diagnosis, sleep apnea, morbid obesity)? @ -None Was patient admitted / discharged? Hospital course, mention meds given and route, prescriptions, significant lab abnormalities, going to OR and other pe rtinent info. @ -Upon arrival patient seen and evaluated in hallway 18. Thorough history and physical exam was performed. IV access was established. Laboratory studies were conducted. CT was performed. CT remarkable for a calcification in the left kidney as well as a obstructing renal stone. I discussed this with the patient. Discussed follow-up with urology. Patient understood this. She was discharged home in stable condition Undiagnosed new problem with uncertain prognosis? @ -No Drug Therapy requiring intensive monitoring for toxicity (Heparin, Nitro, Insulin, Cardizem)? @ -No Were any procedures done? @ -No Diagnosis/symptom? @ -Acute left flank pain, acute obstructive stone in the left renal pelvis Acute, or Chronic, or Acute on Chronic? @ -Acute Uncomplicated (without systemic symptoms) or Complicated (systemic symptoms)? @ -Complicated Side effects of treatment? @ -No Exacerbation, Progression, or Severe Exacerbation? @ -No Poses a threat to life or bodily function? How? (Chest pain, [place], [place], pneumonia, PE, COPD, DKA, ARF, appy, cholecystitis, CVA, Diverticulitis, Homicidal, Suicidal, threat to staff... and all critical care pts) @ -No (Haily Ricardo) - Lab Data Lab Results 02/21/24 02/21/24 02/21/24 Range/Units 16:41 16:41 18:15 WBC 6.5 (3.8-10.6) k/uL RBC 3.88 (3.80-5.40) m/uL Hgb 11.9 (11.4-16.0) gm/dL Hct 35.7 (34.0-46.0) % MCV 92.1 (80.0-100.0) fL MCH 30.6 (25.0-35.0) pg MCHC 33.2 (31.0-37.0) g/dL RDW 12.2 (11.5-15.5) % Plt Count 240 (150-450) k/uL MPV 7.8 Neutrophils % 61 % Lymphocytes % 33 % Monocytes % 4 % Eosinophils % 1 % Basophils % 1 % Neutrophils # 3.9 (1.3-7.7) k/uL Lymphocytes # 2.1 (1.0-4.8) k/uL Monocytes # 0.3 (0-1.0) k/uL Eosinophils # 0.0 (0-0.7) k/uL Basophils # 0.0 (0-0.2) k/uL Sodium (137-145) mmol/L Potassium (3.5-5.1) mmol/L Chloride (98-107) mmol/L Carbon Dioxide (22-30) mmol/L Anion Gap mmol/L BUN (7-17) mg/dL Creatinine (0.52-1.04) mg/dL Est GFR (CKD-EPI)AfAm (>60 ml/min/1.73 sqM) Est GFR (CKD-EPI)NonAf (>60 ml/min/1.73 sqM) Glucose (74-99) mg/dL Plasma Lactic Acid Dami (0.7-2.0) mmol/L Calcium (8.4-10.2) mg/dL Total Bilirubin (0.2-1.3) mg/dL AST (14-36) U/L ALT (4-34) U/L Alkaline Phosphatase (38-126) U/L Total Protein (6.3-8.2) g/dL Albumin (3.5-5.0) g/dL Urine Color Colorless Urine Appearance Clear (Clear) Urine pH 6.0 (5.0-8.0) Ur Specific Longs 1.001 (1.001-1.035) Urine Protein Negative (Negative) Urine Glucose (UA) Negative (Negative) Urine Ketones Negative (Negative) Urine Blood Negative (Negative) Urine Nitrite Negative (Negative) Urine Bilirubin Negative (Negative) Urine Urobilinogen <2.0 (<2.0) mg/dL Ur Leukocyte Esterase Negative (Negative) Urine HCG, Qual Not Detected (Not Detectd) 02/21/24 02/21/24 Range/Units 18:15 18:15 WBC (3.8-10.6) k/uL RBC (3.80-5.40) m/uL Hgb (11.4-16.0) gm/dL Hct (34.0-46.0) % MCV (80.0-100.0) fL MCH (25.0-35.0) pg MCHC (31.0-37.0) g/dL RDW (11.5-15.5) % Plt Count (150-450) k/uL MPV Neutrophils % % Lymphocytes % % Monocytes % % Eosinophils % % Basophils % % Neutrophils # (1.3-7.7) k/uL Lymphocytes # (1.0-4.8) k/uL Monocytes # (0-1.0) k/uL Eosinophils # (0-0.7) k/uL Basophils # (0-0.2) k/uL Sodium 136 L (137-145) mmol/L Potassium 3.8 (3.5-5.1) mmol/L Chloride 104 (98-107) mmol/L Carbon Dioxide 28 (22-30) mmol/L Anion Gap 4 mmol/L BUN 11 (7-17) mg/dL Creatinine 0.77 (0.52-1.04) mg/dL Est GFR (CKD-EPI)AfAm >90 (>60 ml/min/1.73 sqM) Est GFR (CKD-EPI)NonAf >90 (>60 ml/min/1.73 sqM) Glucose 83 (74-99) mg/dL Plasma Lactic Acid Dami 0.5 L (0.7-2.0) mmol/L Calcium 9.5 (8.4-10.2) mg/dL Total Bilirubin 0.9 (0.2-1.3) mg/dL AST 24 (14-36) U/L ALT 27 (4-34) U/L Alkaline Phosphatase 65 (38-126) U/L Total Protein 7.4 (6.3-8.2) g/dL Albumin 4.4 (3.5-5.0) g/dL Urine Color Urine Appearance (Clear) Urine pH (5.0-8.0) Ur Specific Longs (1.001-1.035) Urine Protein (Negative) Urine Glucose (UA) (Negative) Urine Ketones (Negative) Urine Blood (Negative) Urine Nitrite (Negative) Urine Bilirubin (Negative) Urine Urobilinogen (<2.0) mg/dL Ur Leukocyte Esterase (Negative) Urine HCG, Qual (Not Detectd) Disposition <Anastasiia Mirza - Last Filed: 02/21/24 17:56> Is patient prescribed a controlled substance at d/c from ED?: Yes When asked, does pt state using other controlled substances?: No If prescribed controlled substance>3 days was MAPS reviewed?: Prescribed <3 Days If opioid is for acute pain is fill amount 7 days or less?: Yes Time of Disposition: 21:01 <Haily Ricardo - Last Filed: 02/24/24 14:54> Clinical Impression: Flank pain, Renal calculi Disposition: HOME SELF-CARE Condition: Stable Instructions (If sedation given, give patient instructions): Flank Pain (ED) Additional Instructions: Please follow-up with the urologist for further management of your symptoms. Utilize the pain medications as needed. Return for any new or worsening symptoms Prescriptions: HYDROcodone/APAP 5-325MG [[place] 5-325] 1 tab PO Q6HR PRN 3 Days #12 tab PRN Reason: Severe Breakthrough Pain Referrals: Chacorta Gonzales MD [Primary Care Provider] - 1-2 days Gavin Sullivan MD [STAFF PHYSICIAN] - 1-2 days
[2024-02-21 18:30] LABS: HCT 35.7 % (34.0-46.0); HGB 11.9 gm/dL (11.4-16.0); RBC 3.88 m/uL (3.80-5.40); WBC 6.5 k/uL (3.8-10.6)
[2024-02-21 18:31] LABS: Basophils % (A) 1 %; Eosinophils % (A) 1 %; Lymphocytes # (A) 2.1 k/uL (1.0-4.8); Lymphocytes % (A) 33 %; MCH 30.6 pg (25.0-35.0); MCHC 33.2 g/dL (31.0-37.0); MCV 92.1 fL (80.0-100.0); Mean Platelet Volume 7.8; Monocytes # (A) 0.3 k/uL (0-1.0); Monocytes % (A) 4 %; Neutrophils # (A) 3.9 k/uL (1.3-7.7); Neutrophils % (A) 61 %; Platelet Count 240 k/uL (150-450); RDW 12.2 % (11.5-15.5)
[2024-02-21 18:48] LABS: ALT 27 U/L (4-34); AST 24 U/L (14-36); African American GFR (CKD) >90 (>60 ml/min/1.73 sqM); Albumin 4.4 g/dL (3.5-5.0); Alkaline Phosphatase 65 U/L (38-126); Anion Gap 4 mmol/L; Blood Urea Nitrogen 11 mg/dL (7-17); Calcium 9.5 mg/dL (8.4-10.2); Carbon Dioxide 28 mmol/L (22-30); Chloride 104 mmol/L (98-107); Glucose 83 mg/dL (74-99); Non-African American GFR(CKD) >90 (>60 ml/min/1.73 sqM); Potassium 3.8 mmol/L (3.5-5.1); Sodium 136 mmol/L (137-145); Total Bilirubin 0.9 mg/dL (0.2-1.3); Total Protein 7.4 g/dL (6.3-8.2)
[2024-02-21 20:10] VITALS: BP 135/85; PULSE 66
--- NOTE | 2024-02-21 20:13 | CT ---
EXAMINATION TYPE: CT abdomen pelvis wo con CT DLP: 355.9 mGycm, Automated exposure control for dose reduction was used. DATE OF EXAM: 02/21/2024 7:33 PM COMPARISON: CT abdomen pelvis most recent from 06/24/2016 CLINICAL INDICATION: Female, 43 years old with history of left flank pain; Left side flank pain. TECHNIQUE: Axial CT abdomen pelvis wo con;Sagittal and coronal reformats were created on a separate workstation. Contrast used: mL of , (none if empty) Oral contrast used: without Oral Contrast (none if empty) FINDINGS: LOWER CHEST: Unremarkable ABDOMEN LIVER: Unremarkable GALLBLADDER AND BILE DUCTS: Unremarkable. PANCREAS: Unremarkable. SPLEEN: Unremarkable. ADRENAL GLANDS: Unremarkable. KIDNEYS AND URETERS: Left nonobstructing calculus measuring up to 10 mm. There is a calculus in the p dominique possibly representing obstructing 3 mm calculus is not seen on 06/24/2016. The ureters are poorly visualized. No right hydronephrosis or calculus. PELVIS BLADDER: Unremarkable REPRODUCTIVE: Unremarkable. ABDOMEN & PELVIS STOMACH AND BOWEL: No evidence of bowel obstruction. PERITONEUM/RETROPERITONEUM: No evidence of pneumoperitoneum or free fluid. VASCULATURE: No evidence of aortic aneurysm. MUSCULOSKELETAL: No acute osseous abnormalities LYMPH NODES: No gross evidence for lymphadenopathy. SOFT TISSUE/ABDOMINAL WALL: Unremarkable IMPRESSION: 1. There is a calculus in the pelvis possibly representing obstructing 3 mm ureteral calculus, not s een on 06/24/2016. Ureters are poorly visualized in the pelvis. 2. Left nonobstructing calculus measuring up to 10 mm. 3. The ureters poorly visualized. No right hydronephrosis or calculus. [facility], Workstation: [id number], 02/21/2024 8:11 PM
[2024-02-21] MEDS: ACET/COD 300 MG/30 MG STARTER PACK 6 TAB BTL PO STA (21:29)
== END 2024-02-21 21:22 | disposition home or self-care (01) ==
LOC: EC 16:22
DX: M54.50 Low back pain, unspecified
CPT/HCPCS: 36415; 74176; 80053; 81003; 81025; 83605; 85025; 99284

== ENCOUNTER → 2024-08-11 | Outpatient (CLI) | payer BC ==
[2024-08-11 15:00] LABS: HCT 36.9 % (37.2-46.3); HGB 11.8 g/dL (12.0-15.0); MCH 29.3 pg (27.0-32.0); MCV 91.6 FL (80.0-97.0); Mean Platelet Volume 10.4 FL (9.5-12.2); NRBC Per 100 WBC 0 X 10*3/uL (0.00-0.01); Platelet Count 228 X 10*3/uL (140-440); RBC 4.03 X 10*6/uL (4.10-5.20); RDW 13.6 % (11.5-14.5); WBC 4.85 X 10*3/uL (4.50-10.00)
[2024-08-11 18:20] LABS: BUN/Creat Ratio 16.75 Ratio (12.00-20.00); Blood Urea Nitrogen 13.4 mg/dL (9.0-27.0); Glucose 93 mg/dL (70-110); LDL Cholesterol,Calculated 99.9 mg/dL (0.0-131.0); VLDL Calculation 13.94 mg/dL (5.00-40.00)
[2024-08-11 18:21] LABS: ALT 32 U/L (8-44); AST 20 U/L (13-35); Albumin/Globulin Ratio 1.29 Ratio (1.60-3.17); Alkaline Phosphatase 61 U/L (41-126); Calcium 9.2 mg/dL (8.7-10.3); Carbon Dioxide 26.7 mmol/L (21.6-31.8); Chloride 105 mmol/L (96-109); Globulin 3.1 g/dL (1.6-3.3); Sodium 140 mmol/L (135-145); Total Bilirubin 0.3 mg/dL (0.3-1.2); Total Protein 7.1 g/dL (6.2-8.2)
== END | disposition home or self-care (01) ==
LOC: LABWHC1 12:41
PROVIDERS: ATTEND Family Medicine
DX: Z00.00 Encounter for general adult medical examination without abnormal findings (principal); M25.50 Pain in unspecified joint
CPT/HCPCS: 36415; 80053; 80061; 85027; 86038

== ENCOUNTER → 2024-10-06 | Outpatient (CLI) | payer BC ==
--- NOTE | 2024-10-06 13:49 | MM ---
Reason for Exam: Screening (asymptomatic). Last mammogram was performed 5 year(s) and 11 month(s) ago. Patient History: Menarche at age 10. First Full-Term at age 26. Patient has history of breast feeding. Currently using Hormonal Contraceptives, starting at age 21. Risk Values: Dottie 5 year model risk: 0.9%. NCI Lifetime model risk: 10.5%. Prior Study Comparison: 11/09/2018 Bilateral Screening Mammogram, [facility]. 11/09/2018 Right Diagnostic Mammogram, [facility]. Tissue Density: The breasts are heterogeneously dense, which may obscure small masses. Findings: Analyzed By CAD. There is no suspicious group of microcalcifications or new suspicious mass in either breast. Overall Assessment: Negative, BI-RAD 1 Management: Screening Mammogram of both breasts in 1 year. Some Advise annual bilateral breast ultrasound surveillance in patient with background dense tissue. Patient should continue monthly self-breast exams. A clinical breast exam by your physician is recommended on an annual basis. This exam should not preclude additional follow-up of suspicious palpable abnormalities. Note on Dottie scores and lifetime risk: 1. A Dottie score greater than 3% is considered moderate risk. If this is the case, consider specialist referral to assess eligibility for a risk reducing agent. 2. If overall lifetime risk for the development of breast cancer is 20% or higher, the patient may qualify for future screening with alternating mammogram and breast MRI. [facility], , 10/06/2024 1:46 PM. Electronically signed and approved by: Lino Tuttle M.D.
== END | disposition home or self-care (01) ==
LOC: RADMAMWWP 13:14
PROVIDERS: ATTEND Family Medicine
DX: Z12.31 Encounter for screening mammogram for malignant neoplasm of breast (principal); R92.333 Mammographic heterogeneous density, bilateral breasts; Z92.0 Personal history of contraception
CPT/HCPCS: 77063; 77067